=== PATIENT | male | born 1990 | race Caucasian/White ===

== ENCOUNTER 2021-02-05 19:00 | Outpatient (CLI) | payer BC, OTHER | END 2021-02-05 19:01 | disposition home or self-care (01) | LOC: SLEEPLAB 19:00 | PROVIDERS: ATTEND Family Medicine | DX: G47.33 Obstructive sleep apnea (adult) (pediatric) (principal); R53.83 Other fatigue; R06.83 Snoring; G47.10 Hypersomnia, unspecified; G47.00 Insomnia, unspecified; I10 Essential (primary) hypertension; E66.9 Obesity, unspecified; Z68.42 Body mass index [BMI] 45.0-49.9, adult | CPT/HCPCS: 95811 ==

== ENCOUNTER 2022-05-07 09:38 | Outpatient (CLI) | payer OTHER | END 2022-05-07 09:39 | disposition home or self-care (01) | LOC: DTY/OP 09:38 | PROVIDERS: ATTEND Internal Medicine Pulmonary Disease | DX: E66.8 Other obesity (principal); Z68.42 Body mass index [BMI] 45.0-49.9, adult | CPT/HCPCS: 97802 ==

== ENCOUNTER 2022-08-25 18:00 | Outpatient (CLI) | payer OTHER | END 2022-08-25 18:01 | disposition home or self-care (01) | LOC: SLEEPLAB 18:00 | PROVIDERS: ATTEND Internal Medicine Critical Care Medicine | DX: G47.33 Obstructive sleep apnea (adult) (pediatric) (principal); R06.83 Snoring | CPT/HCPCS: 95800 ==

== ENCOUNTER 2022-10-28 11:23 | Emergency (ER) | payer OTHER ==
[2022-10-28] MEDS ORDERED: Ketorolac Tromethamine 30 MG/ML VIAL ONE (13:35)
[2022-10-28] MEDS ORDERED: predniSONE 20 MG TAB ONE (13:35)
== END 2022-10-28 15:51 | disposition home or self-care (01) ==
LOC: ERS 11:23
DX: M54.9 Dorsalgia, unspecified (principal)
CPT/HCPCS: 36415; 85652; 86140; 96372; 99284; J1885; J7512